=== PATIENT | female | born 1990 | race Caucasian/White ===

== ENCOUNTER 2016-07-10 10:46 | Emergency (ER) | payer MEDICAID ==
[~2016-07-10] VITALS: Ht 157.5 cm; Wt 100.0 kg
[2016-07-10] MEDS ORDERED: KETOROLAC 30MG/ML VIAL IV ONE (12:00)
[2016-07-10 13:00] LABS: HCG SCREEN NEGATIVE
[2016-07-10] MEDS ORDERED: MORPHINE SULFATE 4 MG/ML CPJ (NOT FOR IM USE) IV NR (13:50)
[2016-07-10] MEDS ORDERED: ONDANSETRON HCL 4MG/2ML VIAL IV NR (14:00)
[2016-07-10] MEDS ORDERED: PROPOFOL 200MG/20ML VIAL IV NR (14:00)
[2016-07-10 15:37] VITALS: BP 134/64
== END 2016-07-10 15:39 | disposition home or self-care (01) ==
LOC: ER 12:00
DX: S43.084A Other dislocation of right shoulder joint, initial encounter (principal); W51.XXXA Accidental striking against or bumped into by another person, initial encounter; Y93.89 Activity, other specified; Y92.69 Other specified industrial and construction area as the place of occurrence of the external cause; Y99.0 Civilian activity done for income or pay
CPT/HCPCS: 23650; 73000; 73030; 84703; 93005; 96374; 96375; 99152; 99285; J1885; J2270; J2405; Z7610; J2704; L3670